=== PATIENT | male | born 1965 | race Caucasian/White ===

== ENCOUNTER 2019-03-11 02:58 | Emergency (ER) | payer MEDICARE ==
[~2019-03-11] VITALS: Ht 193 cm; Wt 90.7 kg
[~2019-03-11 02:58] MED LIST: AMOX1XR PO; ANTOXYBENA OT; CARB100ER PO; CARB200; CARB200 PO; CODACE30 PO; CODBUTACEC PO; CYCL10 PO; HYDACE10B PO; HYDACE5 PO; IBUP400 PO; KEPPRA; Keppra PO; LEVE500 PO; LEVFLO500 PO; LORA1 PO; MEDICAL MARIJUANA INH; NAPR500 PO; NEOPOLHYDS OT; ONDA4 PO; OXYACE5T PO; PROACE100 PO; PROM25 PO; RXCODACET PO; VALP250; VALP250 PO
== END 2019-03-11 04:45 | disposition left against medical advice (07) ==
LOC: ER 02:58
DX: Z53.21 Procedure and treatment not carried out due to patient leaving prior to being seen by health care provider (principal)